=== PATIENT | female | born 1950 | race Two or more races ===

== ENCOUNTER 2023-06-01 16:01 | Emergency (ER) | payer BC, OTHER ==
[~2023-06-01] VITALS: Ht 152.4 cm; Wt 46.5 kg
[2023-06-01 16:15] VITALS: BP 183/84; PULSE 89; RESP 18; O2SAT 100
== END 2023-06-01 20:42 | disposition left against medical advice (07) ==
LOC: ER 16:01
DX: K08.89 Other specified disorders of teeth and supporting structures (principal); Z53.21 Procedure and treatment not carried out due to patient leaving prior to being seen by health care provider